=== PATIENT | female | born 1985 | race Caucasian/White ===

== ENCOUNTER 2022-05-20 16:48 | Emergency (ER) | payer MEDICAID ==
[2022-05-20] MEDS ORDERED: Diazepam 5 MG Tab PO STA (17:15)
[2022-05-20] MEDS ORDERED: Dexamethasone 10 MG/ML SDV IM STA (17:15)
== END 2022-05-20 18:21 | disposition home or self-care (01) ==
LOC: MW.ED 16:48
DX: S39.012A Strain of muscle, fascia and tendon of lower back, initial encounter (principal); M62.830 Muscle spasm of back
CPT/HCPCS: 96372; 99283; A9270; J1100

== ENCOUNTER 2022-08-24 12:58 | Emergency (ER) | payer MEDICAID ==
[2022-08-24] MEDS ORDERED: LORazepam 1 MG Tab PO ONE (13:18)
[2022-08-24] MEDS ORDERED: LORazepam 0.5 MG Tab PO ONE (13:58)
== END 2022-08-24 14:13 | disposition home or self-care (01) ==
LOC: MW.ED 12:58
DX: F41.9 Anxiety disorder, unspecified (principal)
CPT/HCPCS: 99283; A9270

== ENCOUNTER 2022-10-07 11:09 | Emergency (ER) | payer MEDICAID ==
[2022-10-07] MEDS ORDERED: Orphenadrine 60 MG/2 ML Inj IM STA (11:34)
[2022-10-07] MEDS ORDERED: Ketorolac 60 MG/2 ML SDV IM STA (11:34)
== END 2022-10-07 12:33 | disposition home or self-care (01) ==
LOC: MW.ED 11:09
DX: S09.90XA Unspecified injury of head, initial encounter (principal); W01.198A Fall on same level from slipping, tripping and stumbling with subsequent striking against other object, initial encounter
CPT/HCPCS: 70450; 96372; 99283; J1885; J2360

== ENCOUNTER 2022-10-20 09:55 | Emergency (ER) | payer MEDICAID ==
[2022-10-20 11:36] LABS: CORONAVIRUS COVID-19 NAA NEGATIVE (NEGATIVE); INFLUENZA A NAA NEGATIVE (NEGATIVE); INFLUENZA B NAA NEGATIVE (NEGATIVE); RESPIRATORY SYNCYTIAL VIR NAA NEGATIVE (NEGATIVE)
== END 2022-10-20 11:48 | disposition home or self-care (01) ==
LOC: MW.ED 09:55
DX: O99.891 Other specified diseases and conditions complicating pregnancy (principal); J32.9 Chronic sinusitis, unspecified; Z20.822 Contact with and (suspected) exposure to COVID-19; Z3A.01 Less than 8 weeks gestation of pregnancy
CPT/HCPCS: 0241U; 81003; 81025; 87651; 99283

== ENCOUNTER 2022-10-23 17:47 | Emergency (ER) | payer MEDICAID ==
[2022-10-23 22:36] LABS: POTASSIUM,K 3.6 mmol/L (3.5-5.1)
== END 2022-10-23 23:55 | disposition home or self-care (01) ==
LOC: MW.ED 17:47
DX: R10.2 Pelvic and perineal pain (principal); Z3A.01 Less than 8 weeks gestation of pregnancy
CPT/HCPCS: 36415; 76817; 76817-26; 80053; 83690; 84702; 85025; 86900; 86901; 99283; 99284

== ENCOUNTER 2022-10-28 08:26 | Emergency (ER) | payer MEDICAID ==
[2022-10-28] MEDS ORDERED: Famotidine 20 MG/2 ML SDV IVPUSH ONE (08:35)
[2022-10-28] MEDS ORDERED: Sodium Chloride 0.9% 1,000 ML IV ONE (08:35)
[2022-10-28] MEDS ORDERED: Ondansetron 4 MG/2 ML SDV IVPUSH ONE ×2 (08:35→10:14)
[2022-10-28] MEDS ORDERED: Dextrose 5%-0.9% NaCl 500 ML IV STA (09:36)
[2022-10-28 09:50] LABS: CARBON DIOXIDE,CO2 22.6 mmol/L (21.0-32.0); POTASSIUM,K 4.3 mmol/L (3.5-5.1)
[2022-10-28] MEDS ORDERED: Promethazine 25 MG/ML SDV IM ONE (10:14)
== END 2022-10-28 11:32 | disposition home or self-care (01) ==
LOC: MW.ED 08:26
DX: O21.9 Vomiting of pregnancy, unspecified (principal); Z3A.01 Less than 8 weeks gestation of pregnancy
CPT/HCPCS: 36415; 80053; 81003; 82009; 83690; 84702; 85025; 96361; 96372; 96374; 96375; 96376; 99284; J2405; J2550; J3490; J7030; J7042

== ENCOUNTER 2022-11-02 17:58 | Emergency (ER) | payer MEDICAID ==
[2022-11-02] MEDS ORDERED: Sodium Chloride 0.9% 2.5 ML Syringe FLUSH PRN (18:24)
[2022-11-02] MEDS ORDERED: Sodium Chloride 0.9% 10 ML Syringe FLUSH PRN (18:24)
[2022-11-02] MEDS ORDERED: Sodium Chloride 0.9% 1,000 ML IV STA ×2 (18:27)
[2022-11-02] MEDS ORDERED: Ondansetron 4 MG/2 ML SDV IVPUSH STA (18:27)
[2022-11-02 19:02] LABS: CARBON DIOXIDE,CO2 22.2 mmol/L (21.0-32.0); POTASSIUM,K 4.1 mmol/L (3.5-5.1)
[2022-11-02] MEDS ORDERED: Promethazine 25 MG/ML SDV IM STA (19:50)
== END 2022-11-02 20:45 | disposition home or self-care (01) ==
LOC: MW.ED 17:58
DX: O21.0 Mild hyperemesis gravidarum (principal); Z3A.01 Less than 8 weeks gestation of pregnancy
CPT/HCPCS: 36415; 80053; 81003; 83735; 85025; 96361; 96372; 96374; 99284; J2405; J2550; J3490; J7030; 99283

== ENCOUNTER 2022-11-06 17:47 | Emergency (ER) | payer MEDICAID ==
[2022-11-06] MEDS ORDERED: Sodium Chloride 0.9% 1,000 ML IV STA (19:21)
[2022-11-06] MEDS ORDERED: Sodium Chloride 0.9% 10 ML Syringe FLUSH PRN (19:21)
[2022-11-06] MEDS ORDERED: Sodium Chloride 0.9% 2.5 ML Syringe FLUSH PRN (19:21)
[2022-11-06] MEDS ORDERED: Ondansetron 4 MG/2 ML SDV IVPUSH STA (19:21)
[2022-11-06] MEDS ORDERED: Sodium Chloride 0.9% 1,000 ML IV ONE (19:38)
[2022-11-06 19:44] LABS: BASOPHILS PERCENT AUTO 0.1 % (0.0-1.5); EOSINOPHILS ABSOLUTE AUTO 0.1 K/uL (0.0-0.7); EOSINOPHILS PERCENT AUTO 0.8 % (0.0-7.0); HEMATOCRIT 37.4 % (36.0-46.0); HEMOGLOBIN 13.5 g/dL (12.0-16.0); LYMPHOCYTES ABSOLUTE AUTO 1.6 K/uL (0.6-2.4); LYMPHOCYTES PERCENT AUTO 11.8 % (16.0-40.0); MEAN CORPUSCULAR HEMOGLOBIN 29.1 pg (27.0-32.0); MEAN CORPUSCULAR HGB CONC 36.1 g/dL (31.0-37.0); MEAN CORPUSCULAR VOLUME 80.6 fL (80.0-98.0); MONOCYTES ABSOLUTE AUTO 0.7 K/uL (0.0-0.8); MONOCYTES PERCENT AUTO 5.3 % (0.0-15.0); NEUTROPHILS ABSOLUTE AUTO 10.7 K/uL (1.4-5.7); NRBC ABSOLUTE 0 K/uL; PLATELET COUNT,PLT 186 K/uL (150-400); RED BLOOD CELL COUNT 4.64 M/uL (4.30-5.90)
[2022-11-06 19:55] LABS: A/G RATIO 1.2 (0.9-1.6); ALBUMIN 3.8 g/dL (3.4-5.0); BILIRUBIN TOTAL 0.7 mg/dL (0.2-1.0); CALCIUM 9.4 mg/dL (8.5-10.1); CARBON DIOXIDE,CO2 21.6 mmol/L (21.0-32.0); CREATININE 0.7 mg/dL (0.6-1.0); EST CRCL DRUG DOSING (CG) 84.65 mL/min; POTASSIUM,K 4.1 mmol/L (3.5-5.1); PROTEIN TOTAL,TP 7.1 g/dL (6.4-8.2)
[2022-11-06 20:51] LABS: APPEARANCE,URINE CLEAR; BILIRUBIN,URINE NEGATIVE (NEGATIVE); COLOR,URINE YELLOW; GLUCOSE,URINE NEGATIVE (NEGATIVE); KETONES,URINE >=80 mg/dL (NEGATIVE); LEUKOCYTE ESTERASE,URINE NEGATIVE (NEGATIVE); NITRITE,URINE NEGATIVE (NEGATIVE); OCCULT BLOOD,URINE NEGATIVE (NEGATIVE); PROTEIN,URINE NEGATIVE (NEGATIVE)
== END 2022-11-06 21:11 | disposition home or self-care (01) ==
LOC: MW.ED 17:47
DX: O21.1 Hyperemesis gravidarum with metabolic disturbance (principal); O09.521 Supervision of elderly multigravida, first trimester; Z3A.01 Less than 8 weeks gestation of pregnancy
CPT/HCPCS: 36415; 80053; 81003; 85025; 96361; 96374; 99284; J2405; J3490; J7030

== ENCOUNTER 2022-11-09 17:29 | Emergency (ER) | payer MEDICAID ==
[2022-11-09] MEDS ORDERED: Sodium Chloride 0.9% 1,000 ML IV ONE (18:19)
[2022-11-09 19:59] LABS: BASOPHILS PERCENT AUTO 0.2 % (0.0-1.5); EOSINOPHILS ABSOLUTE AUTO 0.2 K/uL (0.0-0.7); EOSINOPHILS PERCENT AUTO 1.3 % (0.0-7.0); HEMATOCRIT 39.1 % (36.0-46.0); HEMOGLOBIN 13.9 g/dL (12.0-16.0); LYMPHOCYTES ABSOLUTE AUTO 1.5 K/uL (0.6-2.4); LYMPHOCYTES PERCENT AUTO 11.8 % (16.0-40.0); MEAN CORPUSCULAR HEMOGLOBIN 28.6 pg (27.0-32.0); MEAN CORPUSCULAR HGB CONC 35.5 g/dL (31.0-37.0); MEAN CORPUSCULAR VOLUME 80.5 fL (80.0-98.0); MONOCYTES ABSOLUTE AUTO 0.7 K/uL (0.0-0.8); MONOCYTES PERCENT AUTO 5.6 % (0.0-15.0); NEUTROPHILS ABSOLUTE AUTO 10.6 K/uL (1.4-5.7); NEUTROPHILS PERCENT AUTO 81.1 % (48.0-80.0); NRBC ABSOLUTE 0 K/uL; PLATELET COUNT,PLT 197 K/uL (150-400); RED BLOOD CELL COUNT 4.86 M/uL (4.30-5.90)
[2022-11-09 20:00] LABS: APPEARANCE,URINE SLT CLOUDY; BILIRUBIN,URINE SMALL (NEGATIVE); COLOR,URINE YELLOW; GLUCOSE,URINE NEGATIVE (NEGATIVE); KETONES,URINE >=80 mg/dL (NEGATIVE); LEUKOCYTE ESTERASE,URINE NEGATIVE (NEGATIVE); NITRITE,URINE NEGATIVE (NEGATIVE); OCCULT BLOOD,URINE NEGATIVE (NEGATIVE); PROTEIN,URINE TRACE mg/dL (NEGATIVE)
[2022-11-09] MEDS ORDERED: Prochlorperazine 10 MG/2 ML SDV IVPUSH ONE (20:04)
[2022-11-09 20:05] LABS: BACTERIA,URINE FEW (NEGATIVE); EPITHELIAL CELLS,URINE FEW (NONE-FEW); MUCUS,URINE MANY (NONE-MOD); RBC,URINE NONE SEEN (0-2/HPF); SQUAMOUS EPITHELIAL CELLS,UR FEW; WBC,URINE NONE SEEN (0-5/HPF)
[2022-11-09] MEDS ORDERED: diphenhydrAMINE 50 MG/ML SDV IVPUSH ONE (20:05)
[2022-11-09] MEDS ORDERED: Dextrose 5%-0.9% NaCl 1,000 ML IV SCH (20:15)
[2022-11-09 20:20] LABS: A/G RATIO 1.1 (0.9-1.6); ALBUMIN 3.9 g/dL (3.4-5.0); BILIRUBIN TOTAL 0.6 mg/dL (0.2-1.0); CARBON DIOXIDE,CO2 22.4 mmol/L (21.0-32.0); CREATININE 0.8 mg/dL (0.6-1.0); EST CRCL DRUG DOSING (CG) 74.06 mL/min; POTASSIUM,K 3.9 mmol/L (3.5-5.1); PROTEIN TOTAL,TP 7.4 g/dL (6.4-8.2)
[2022-11-09] MEDS ORDERED: Ondansetron 4 MG/2 ML SDV IVPUSH ONE (20:57)
== END 2022-11-09 21:19 | disposition home or self-care (01) ==
LOC: MW.ED 17:29
DX: O21.1 Hyperemesis gravidarum with metabolic disturbance (principal); Z3A.08 8 weeks gestation of pregnancy
CPT/HCPCS: 36415; 80053; 81001; 84702; 85025; 96361; 96374; 96375; 99284; J0780; J1200; J2405; J7030; J7042

== ENCOUNTER 2022-11-20 10:18 | Emergency (ER) | payer MEDICAID ==
[2022-11-20 11:40] LABS: BASOPHILS PERCENT AUTO 0.1 % (0.0-1.5); EOSINOPHILS ABSOLUTE AUTO 0.1 K/uL (0.0-0.7); EOSINOPHILS PERCENT AUTO 0.9 % (0.0-7.0); HEMATOCRIT 36.2 % (36.0-46.0); HEMOGLOBIN 12.6 g/dL (12.0-16.0); LYMPHOCYTES PERCENT AUTO 10.4 % (16.0-40.0); MEAN CORPUSCULAR HEMOGLOBIN 28.3 pg (27.0-32.0); MEAN CORPUSCULAR HGB CONC 34.8 g/dL (31.0-37.0); MEAN CORPUSCULAR VOLUME 81.2 fL (80.0-98.0); MONOCYTES ABSOLUTE AUTO 0.5 K/uL (0.0-0.8); MONOCYTES PERCENT AUTO 5.4 % (0.0-15.0); NEUTROPHILS ABSOLUTE AUTO 8.2 K/uL (1.4-5.7); NEUTROPHILS PERCENT AUTO 83.2 % (48.0-80.0); NRBC ABSOLUTE 0 K/uL; PLATELET COUNT,PLT 170 K/uL (150-400); RED BLOOD CELL COUNT 4.46 M/uL (4.30-5.90); WHITE BLOOD CELL COUNT,WBC 9.91 K/uL (4.0-11.0)
[2022-11-20 11:46] LABS: COLOR,URINE YELLOW; GLUCOSE,URINE NEGATIVE (NEGATIVE); KETONES,URINE >=80 mg/dL (NEGATIVE); LEUKOCYTE ESTERASE,URINE NEGATIVE (NEGATIVE); NITRITE,URINE NEGATIVE (NEGATIVE); OCCULT BLOOD,URINE SMALL (NEGATIVE); PROTEIN,URINE TRACE mg/dL (NEGATIVE)
[2022-11-20 11:53] LABS: APPEARANCE,URINE HAZY; BILIRUBIN,URINE SMALL (NEGATIVE)
[2022-11-20 11:54] LABS: BACTERIA,URINE FEW (NEGATIVE); EPITHELIAL CELLS,URINE OCCASIONAL (NONE-FEW); MUCUS,URINE LIGHT (NONE-MOD); RBC,URINE 0-1 (0-2/HPF); WBC,URINE 0-1 (0-5/HPF)
== END 2022-11-20 13:20 | disposition home or self-care (01) ==
LOC: MW.ED 10:18
DX: O20.9 Hemorrhage in early pregnancy, unspecified (principal); Z79.899 Other long term (current) drug therapy; Z3A.09 9 weeks gestation of pregnancy
CPT/HCPCS: 36415; 76801; 76801-26; 81001; 84702; 85025; 86900; 86901; 99284

== ENCOUNTER 2022-11-29 17:37 | Emergency (ER) | payer MEDICAID ==
[2022-11-29 20:45] LABS: APPEARANCE,URINE SLT CLOUDY; BILIRUBIN,URINE NEGATIVE (NEGATIVE); COLOR,URINE DARK YELLOW; GLUCOSE,URINE NEGATIVE (NEGATIVE); KETONES,URINE TRACE mg/dL (NEGATIVE); LEUKOCYTE ESTERASE,URINE NEGATIVE (NEGATIVE); NITRITE,URINE NEGATIVE (NEGATIVE); OCCULT BLOOD,URINE LARGE (NEGATIVE); PROTEIN,URINE TRACE mg/dL (NEGATIVE)
[2022-11-29 20:55] LABS: BACTERIA,URINE 4+ (NEGATIVE); EPITHELIAL CELLS,URINE MODERATE (NONE-FEW); MUCUS,URINE FEW (NONE-MOD)
[2022-11-29 20:56] LABS: AMORPHOUS SEDIMENT,URINE MODERATE (NEGATIVE)
== END 2022-11-29 20:26 | disposition home or self-care (01) ==
LOC: MW.ED 17:37
DX: O20.9 Hemorrhage in early pregnancy, unspecified (principal); Z3A.10 10 weeks gestation of pregnancy
CPT/HCPCS: 81001; 99283; 99284

== ENCOUNTER 2023-03-06 09:14 | Emergency (ER) | payer MEDICAID ==
[2023-03-06] MEDS ORDERED: Sodium Chloride 0.9% 1,000 ML IV ONE (10:07)
[2023-03-06] MEDS ORDERED: Ondansetron 4 MG/2 ML SDV IVPUSH ONE (10:08)
[2023-03-06 10:53] LABS: BASOPHILS PERCENT AUTO 0.2 % (0.0-1.5); EOSINOPHILS ABSOLUTE AUTO 0.1 K/uL (0.0-0.7); EOSINOPHILS PERCENT AUTO 0.7 % (0.0-7.0); HEMATOCRIT 35.8 % (36.0-46.0); HEMOGLOBIN 12.3 g/dL (12.0-16.0); LYMPHOCYTES ABSOLUTE AUTO 0.9 K/uL (0.6-2.4); LYMPHOCYTES PERCENT AUTO 7.5 % (16.0-40.0); MEAN CORPUSCULAR HEMOGLOBIN 28.1 pg (27.0-32.0); MEAN CORPUSCULAR HGB CONC 34.4 g/dL (31.0-37.0); MEAN CORPUSCULAR VOLUME 81.7 fL (80.0-98.0); MONOCYTES ABSOLUTE AUTO 0.6 K/uL (0.0-0.8); MONOCYTES PERCENT AUTO 4.5 % (0.0-15.0); NEUTROPHILS ABSOLUTE AUTO 10.7 K/uL (1.4-5.7); NEUTROPHILS PERCENT AUTO 87.1 % (48.0-80.0); NRBC ABSOLUTE 0 K/uL; PLATELET COUNT,PLT 152 K/uL (150-400); RED BLOOD CELL COUNT 4.38 M/uL (4.30-5.90); WHITE BLOOD CELL COUNT,WBC 12.28 K/uL (4.0-11.0)
[2023-03-06 11:21] LABS: A/G RATIO 0.9 (0.9-1.6); BILIRUBIN TOTAL 0.6 mg/dL (0.2-1.0); CALCIUM 8.5 mg/dL (8.5-10.1); CARBON DIOXIDE,CO2 20.9 mmol/L (21.0-32.0); CREATININE 0.6 mg/dL (0.6-1.0); EST CRCL DRUG DOSING (CG) 97.81 mL/min; POTASSIUM,K 3.9 mmol/L (3.5-5.1); PROTEIN TOTAL,TP 6.4 g/dL (6.4-8.2)
[2023-03-06 11:50] LABS: APPEARANCE,URINE CLEAR; COLOR,URINE YELLOW; GLUCOSE,URINE NEGATIVE (NEGATIVE); KETONES,URINE >=80 mg/dL (NEGATIVE); LEUKOCYTE ESTERASE,URINE NEGATIVE (NEGATIVE); NITRITE,URINE NEGATIVE (NEGATIVE); OCCULT BLOOD,URINE NEGATIVE (NEGATIVE); PROTEIN,URINE NEGATIVE (NEGATIVE)
[2023-03-06 12:00] LABS: BILIRUBIN,URINE SMALL (NEGATIVE)
[2023-03-06] MEDS ORDERED: Promethazine 12.5 MG Supp RECTAL ONE (12:21)
== END 2023-03-06 13:21 | disposition home or self-care (01) ==
LOC: MW.ED 09:14
DX: O21.0 Mild hyperemesis gravidarum (principal); Z20.822 Contact with and (suspected) exposure to COVID-19; Z3A.24 24 weeks gestation of pregnancy
CPT/HCPCS: 36415; 71045; 80053; 81003; 85025; 87635; 93005; 96361; 96374; 99285; A9270; J2405; J7030; 93010; 99284; U0002

== ENCOUNTER 2023-04-14 13:32 | Emergency (ER) | payer MEDICAID | END 2023-04-14 14:03 | disposition home or self-care (01) | LOC: MW.ED 13:32 | DX: J32.9 Chronic sinusitis, unspecified (principal) | CPT/HCPCS: 99283 ==